=== PATIENT | female | born 1985 | race American Indian/Alaskan Native ===

== ENCOUNTER 2016-11-25 23:36 | Emergency (ER) | payer SELFPAY ==
[2016-11-26] MEDS ORDERED: NORCO 5/325 PO ONE (02:51)
[2016-11-26] MEDS ORDERED: BOOSTRIX IM ONE (02:51)
[2016-11-26] MEDS ORDERED: MARCAINE 0.5% INFILTRATI ONE (02:51)
[2016-11-26] MEDS ORDERED: CLEOCIN IM ONE (02:52)
--- NOTE | 2016-11-26 02:53 | Emergency Department Report ---
- General Chief complaint: Skin/Abscess/Foreign Body Stated complaint: BOIL Time Seen by Provider: 11/26/16 02:15 Source: patient, family Mode of arrival: Ambulatory Limitations: No Limitations - History of Present Illness Initial comments: Patient care reported she has boil to her right pubic area and one on her left buttocks sustaining going on for 4 days. Denies any fever or chills. She says she was treated at another fast facility with Levaquin and Flagyl for UTI and bacterial vaginosis and she said the Levaquin was making her sick so she stopped taking it. She denies any nausea or vomiting at present. Last menstrual period was 11/01 2016. History of bilateral tubal ligation and kidney stones. Pain is 10 out of 10 to abscess that pubic area and abscess under last buttocks. She said that she just moved to the area and she doesn't know anywhere that does wax and so she's been shaving and she's been get an a lot of shaving bumps and it seems like one of them got infected. He says she stopped taking the Levaquin because it was making her nauseous and she is still on Flagyl for bacterial vaginosis. Denies any urinary burning frequency or urgency. Denies any back or abdominal pain. She says she is able to tolerate drinking fluids without vomiting. MD complaint: abscess/boil Onset/Timin -: days(s) Tetanus Up to Date: no Location: buttocks (left buttocks), genitals (right pubic area) Severity: severe Severity scale (0 -10): 10 Quality: constant, other (throbbing pain) Consistency: constant Improves with: rest Worsens with: palpation, movement Context: other (unknown possible from shaving) Associated symptoms: denies other symptoms Treatments Prior to Arrival: bandages, attempted to drain pus at - Related Data Previous Rx's Medication Instructions Recorded Last Taken Type Ibuprofen [Motrin] 600 mg PO Q8H PRN #15 tablet 11/26/16 Unknown Rx Sulfamethoxazole/Trimethoprim 1 each PO BID #20 tablet 11/26/16 Unknown Rx [Bactrim DS TAB] Allergies Allergy/AdvReac Type Severity Reaction Status Date / Time No Known Allergies Allergy Verified 11/25/16 23:45 Abscess Boil HPI - HPI Chief Complaint: Skin/Abscess/Foreign Body Stated Complaint: BOIL Time Seen by Provider: 11/26/16 02:15 Home Medications: Previous Rx's Medication Instructions Recorded Last Taken Type Ibuprofen [Motrin] 600 mg PO Q8H PRN #15 tablet 11/26/16 Unknown Rx Sulfamethoxazole/Trimethoprim 1 each PO BID #20 tablet 11/26/16 Unknown Rx [Bactrim DS TAB] Allergies/Adverse Reactions: Allergies Allergy/AdvReac Type Severity Reaction Status Date / Time No Known Allergies Allergy Verified 11/25/16 23:45 ED Review of Systems ROS: Stated complaint: BOIL Other details as noted in HPI Comment: All other systems reviewed and negative Constitutional: denies: chills, fever Respiratory: no symptoms reported Cardiovascular: denies: chest pain, palpitations, edema, syncope Gastrointestinal: denies: abdominal pain, nausea, vomiting, diarrhea, constipation Genitourinary: denies: urgency, dysuria, frequency, hematuria, discharge, abnormal menses, dyspareunia Musculoskeletal: denies: back pain, arthralgia, myalgia Skin: other (boils) Neurological: denies: headache, abnormal gait, vertigo ED Past Medical Hx - Past Medical History Previous Medical History?: Yes Hx Kidney Stones: Yes - Surgical History Past Surgical History?: Yes Additional Surgical History: TUBAL LIGATION - Family History Family history: hypertension - Social History Smoking Status: Current Some Day Smoker Substance Use Type: Marijuana - Medications Home Medications: Home Medications Medication Instructions Recorded Confirmed Last Taken Type Ibuprofen [Motrin] 600 mg PO Q8H PRN #15 tablet 11/26/16 Unknown Rx Sulfamethoxazole/Trimethoprim 1 each PO BID #20 tablet 11/26/16 Unknown Rx [Bactrim DS TAB] ED Physical Exam - General Limitations: No Limitations General appearance: alert, in no apparent distress - Head Head exam: Present: atraumatic, normocephalic, normal inspection - Eye Eye exam: Present: normal appearance, PERRL, EOMI Pupils: Present: normal accommodation - ENT ENT exam: Present: normal exam, normal orophraynx, mucous membranes moist - Neck Neck exam: Present: normal inspection, full ROM. Absent: tenderness, meningismus, lymphadenopathy - Respiratory Respiratory exam: Present: normal lung sounds bilaterally. Absent: respiratory distress, chest wall tenderness - Cardiovascular Cardiovascular Exam: Present: normal rhythm, tachycardia, normal heart sounds - GI/Abdominal GI/Abdominal exam: Present: soft, normal bowel sounds. Absent: distended, tenderness, guarding, rebound, rigid - External exam: Present: erythema, swelling, other (multiple areas of noninfected shaving bumps with one area of shaving bump that is infected). Absent: lesions, lacerations, ecchymosis, bleeding - Extremities Exam Extremities exam: Present: normal inspection, full ROM, normal capillary refill. Absent: tenderness, pedal edema, joint swelling, calf tenderness - Back Exam Back exam: Present: normal inspection, full ROM. Absent: tenderness, CVA tenderness (R), CVA tenderness (L), muscle spasm, paraspinal tenderness, vertebral tenderness, rash noted - Neurological Exam Neurological exam: Present: alert, oriented X3, normal gait, reflexes normal. Absent: motor sensory deficit - Psychiatric Psychiatric exam: Present: normal affect, normal mood - Skin Skin exam: Present: warm, dry, normal color, erythema, other (left buttocks with quarter size indurated, erythema area tender to palpate without any fluctuance. With small head to center. Right pubic area with indurated minimal fluctuance, erythema, tender to palpate. 2 x 2 centimeter). Absent: rash - Expanded Skin Exam Expanded Type of lesion: Present: abscess ( right pubic area and cellulitic area to left buttocks) Distribution of rash: genitals (right pubic area 2 x 2 cm.), other (left buttocks quarter size erythema indurated area without any fluctuance) Description of rash: Present: size (left buttocks quarter size indurated, nonfluctuant erythema area. Right pubic area of minimal fluctuance, indurated 2 x 2 centimeter. Tender to palpate with mild erythema), tenderness, erythematous, swelling, fluctuant, indurated. Absent: discharge ED Course Vital Signs 11/25/16 11/26/16 23:45 02:50 Temperature 98.9 F Pulse Rate 108 H 94 H Respiratory 22 Rate Blood Pressure 127/90 O2 Sat by Pulse 100 Oximetry Vital Signs 11/25/16 11/26/16 23:45 02:50 Temperature 98.9 F Pulse Rate 108 H 94 H Respiratory 22 Rate Blood Pressure 127/90 O2 Sat by Pulse 100 Oximetry - Reevaluation(s) Reevaluation #1: 11/26/16 05:10 Patient given Dallas 5/325 2 tablets, booster 0.5 mils IM and Cleocin 6 edges milligrams IM in emergency room without any adverse reaction. Seizure note for details on incision and drainage of abscess - I & D Right Pubic Area Type of Procedure: Complex Site: right pubic area Blade Size: 11 I & D Procedure: betadine prep, sterile drapes applied, sterile dressing applied , gauze wick placed Progress: 5 mL of 0.5% Marcaine used prior to incision and drainage. Patient tolerated procedure well. Small amount of pus mixed with blood came from side. Instructed to apply warm compresses 3-4 times a day and return to the emergency room in 4 days for removal of packing. Simple cellulitic area to left buttocks quarter size unable to I&D because area is indurated without any fluctuant. Patient instructed to apply warm compresses to site to facilitate soft pain and drainage. ED Medical Decision Making - Medical Decision Making ED course: Patient with cellulitis and abscess to right pubic area and cellulitic area to left buttocks area. Procedure note for incision and drainage of abscess to right pubic area. Cellulitic area to left buttocks unable to be drained due to induration and no fluctuance. Patient given an Cleocin 600 mg IM, booster 0.5 mL IM and Dallas 5/325 2 tablets emergency room prior to procedure. Patient instructed to follow up with her primary care physician in 3-5 days and if she does not have one to return to the emergency room through of packing removed. Patient discharged home with prescription for Bactrim and to continue to take her Flagyl for bacterial vaginosis. She was also discharged home with prescription for Motrin for pain. Critical care attestation.: If time is entered above; I have spent that time in minutes in the direct care of this critically ill patient, excluding procedure time. ED Disposition Clinical Impression: Encounter for incision and drainage procedure, Abscess of pubic region, Cellulitis of left buttock Disposition: DC-01 TO HOME OR SELFCARE Is pt being admited?: No Does the pt Need Aspirin: No Condition: Stable Instructions: Cellulitis (ED), Abscess Incision and Drainage (ED) Additional Instructions: Please return to emergency room in 4 days to have packing removed from pubic region. Please take sitz baths and apply warm compresses to right pubic area 3-4 times a day and sitz baths to left buttocks to help to soften cellulitic area. take Motrin as prescribed Take Bactrim DS as instructed If area of cellulitis worsens, increase in pain and increase in swelling please return to the emergency room LALIT Please keep pack in and place to area that was incision and drained until you are seen in 4 days. Prescriptions: Ibuprofen [Motrin] 600 mg PO Q8H PRN #15 tablet PRN Reason: Pain Sulfamethoxazole/Trimethoprim [Bactrim DS TAB] 1 each PO BID #20 tablet Referrals: PRIMARY CARE,MD [Primary Care Provider] - 3-5 Days [facility] [Outside] - 3-5 Days return to, ED in 4 days [Other] - 11/30/16 (For removal of packing in.) Forms: Work/School Release Form(ED)
[2016-11-26 06:54] VITALS: BP 126/70
== END 2016-11-26 05:40 | disposition home or self-care (01) ==
LOC: ED 23:36
DX: N73.9 Female pelvic inflammatory disease, unspecified (principal); N73.2 Unspecified parametritis and pelvic cellulitis; F17.200 Nicotine dependence, unspecified, uncomplicated; F12.10 Cannabis abuse, uncomplicated
CPT/HCPCS: 90471; 90715; 96372; 99283

== ENCOUNTER 2016-11-30 20:13 | Emergency (ER) | payer SELFPAY ==
[2016-12-01] MEDS ORDERED: TRIPLE ANTIBIOTIC TP ONE (02:46)
[2016-12-01 03:14] VITALS: BP 115/72
--- NOTE | 2016-12-01 03:48 | Emergency Department Report ---
ED General Adult HPI - General Chief complaint: Skin/Abscess/Foreign Body Stated complaint: RETURN VISIT Source: patient Mode of arrival: Ambulatory Limitations: No Limitations - History of Present Illness Initial comments: 31 year old female presents to ED for packing removal of right inguinal abscess. patient states she had abscess drained 4 days ago and was told to return for removal of packing. patient is afebrile, neurologically intact, stable and in no acute distress. -: days(s) (4) Location: pelvis Severity scale (0 -10): 0 Consistency: now resolved Improves with: none Worsens with: none Associated Symptoms: denies other symptoms. denies: fever/chills - Related Data Previous Rx's Medication Instructions Recorded Last Taken Type Ibuprofen [Motrin] 600 mg PO Q8H PRN #15 tablet 11/26/16 Unknown Rx Sulfamethoxazole/Trimethoprim 1 each PO BID #20 tablet 11/26/16 Unknown Rx [Bactrim DS TAB] Allergies Allergy/AdvReac Type Severity Reaction Status Date / Time No Known Allergies Allergy Verified 11/25/16 23:45 ED Review of Systems ROS: Stated complaint: RETURN VISIT Other details as noted in HPI Constitutional: denies: chills, fever Eyes: denies: eye pain, eye discharge, vision change ENT: denies: ear pain, throat pain Respiratory: denies: cough, shortness of breath, wheezing Cardiovascular: denies: chest pain, palpitations Endocrine: no symptoms reported Gastrointestinal: denies: abdominal pain, nausea, diarrhea Genitourinary: denies: urgency, dysuria, discharge Musculoskeletal: denies: back pain, joint swelling, arthralgia Skin: other (draining abscess present on right inguinal area of pelvis). denies : rash, lesions Neurological: denies: headache, weakness, paresthesias Psychiatric: denies: anxiety, depression Hematological/Lymphatic: denies: easy bleeding, easy bruising ED Past Medical Hx - Past Medical History Hx Kidney Stones: Yes - Surgical History Additional Surgical History: TUBAL LIGATION - Social History Smoking Status: Never Smoker Substance Use Type: None - Medications Home Medications: Home Medications Medication Instructions Recorded Confirmed Last Taken Type Ibuprofen [Motrin] 600 mg PO Q8H PRN #15 tablet 11/26/16 Unknown Rx Sulfamethoxazole/Trimethoprim 1 each PO BID #20 tablet 11/26/16 Unknown Rx [Bactrim DS TAB] ED Physical Exam - General Limitations: No Limitations General appearance: alert, in no apparent distress - Head Head exam: Present: atraumatic, normocephalic - Eye Eye exam: Present: normal appearance - ENT ENT exam: Present: mucous membranes moist - Neck Neck exam: Present: normal inspection - Respiratory Respiratory exam: Present: normal lung sounds bilaterally. Absent: respiratory distress - Cardiovascular Cardiovascular Exam: Present: regular rate, normal rhythm. Absent: systolic murmur, diastolic murmur, rubs, gallop - GI/Abdominal GI/Abdominal exam: Present: soft, normal bowel sounds, other (draining right inguinal abscess present in pelvic area. area is non infected appearing with no streaking erythema present. area is actively draining yellow discharge.). Absent: distended, tenderness - Extremities Exam Extremities exam: Present: normal inspection - Back Exam Back exam: Present: normal inspection - Neurological Exam Neurological exam: Present: alert, oriented X3 - Psychiatric Psychiatric exam: Present: normal affect, normal mood - Skin Skin exam: Present: warm, dry, intact, normal color. Absent: rash ED Course Vital Signs 11/30/16 12/01/16 21:02 03:13 Temperature 80 F L 97.9 F Pulse Rate 80 62 Respiratory 18 20 Rate Blood Pressure 120/84 Blood Pressure 115/72 [Right] O2 Sat by Pulse 100 100 Oximetry ED Medical Decision Making - Medical Decision Making 31 year old female presents to ED for packing removal of previously drained abscess. patient is currently on Bactrim for abscess. packing has been removed and triple antibiotic ointment and new gauze applied to area of previous I&D. patient is stable, neurologically intact and in no acute distress. Critical care attestation.: If time is entered above; I have spent that time in minutes in the direct care of this critically ill patient, excluding procedure time. ED Disposition Clinical Impression: Abscess of pubic region Disposition: DC-01 TO HOME OR SELFCARE Is pt being admited?: No Does the pt Need Aspirin: No Condition: Stable Additional Instructions: please follow up with a PCP that I referred you to within 2-3days. Referrals: PAULINO GONCALVES MD [Staff Physician] - 2-3 Days JEFERSON POSADA MD [Staff Physician] - 2-3 Days PRIMARY MD YONIS [Primary Care Provider] - 2-3 Days
== END 2016-12-01 03:34 | disposition home or self-care (01) ==
LOC: ED 20:13
DX: Z48.01 Encounter for change or removal of surgical wound dressing (principal); Z98.51 Tubal ligation status
CPT/HCPCS: A6250

== ENCOUNTER 2017-08-22 17:08 | Emergency (ER) | payer SELFPAY ==
[2017-08-22 17:28] VITALS: BP 178/100
[2017-08-22 18:03] LABS: Alanine Aminotransferase 11 units/L (7-56); Albumin 4.4 g/dL (3.9-5); BUN/Creatinine Ratio 8; Blood Urea Nitrogen 8 mg/dL (7-17); Calcium 8.8 mg/dL (8.4-10.2); Hemolysis Index 7; Lipase 36 units/L (13-60)
[2017-08-22 18:08] LABS: Hemoglobin 14.9 gm/dl (10.1-14.3); Mean Corpuscular HGB Conc 33 % (30-34); Mean Corpuscular Hemoglobin 29 pg (28-32); Mean Corpuscular Volume 87 fl (79-97); Platelet Count 188 K/mm3 (140-440); Red Blood Count 5.18 M/mm3 (3.65-5.03); Red Cell Distribution Width 15.2 % (13.2-15.2)
[2017-08-22 18:22] LABS: Bacteria,Urine 1+ /HPF (Negative); Bilirubin,Urine NEG (Negative); Blood,Urine NEG (Negative); Color,Urine Yellow (Yellow); Protein,Urine <15 mg/dL mg/dL (Negative); Urobilinogen,Urine < 2.0 mg/dL (<2.0)
[2017-08-22 18:26] LABS: HCG Qualitative,Urine Negative (Negative)
[2017-08-22 18:40] LABS: Basophils % (Manual) 0 % (0.0-1.8); Eosinophils % (Manual) 0 % (0.0-4.3); Total Cells Counted 100
[2017-08-22 18:41] LABS: Large Platelets Few; Poikilocytosis Few
[2017-08-22] MEDS ORDERED: MOTRIN PO ONE ×2 (20:22→20:27)
[2017-08-22] MEDS ORDERED: ZOFRAN ODT PO ONE (22:52)
[2017-08-22] MEDS ORDERED: TORADOL IM ONE (22:56)
[2017-08-22] MEDS ORDERED: LEVAQUIN PO ONE (22:57)
--- NOTE | 2017-08-22 23:28 | Emergency Department Report ---
ED Abdominal Pain HPI - General Chief Complaint: Abdominal Pain Stated Complaint: ABDOMINAL PAIN Time Seen by Provider: 08/22/17 22:32 Source: patient Mode of arrival: Ambulatory Limitations: No Limitations - History of Present Illness Initial Comments: Patient is complaining of left flank pain radiating to the suprapubic area of severe intensity with no aggravating or relieving factors. She is also complaining of nausea vomiting and diarrhea. MD Complaint: abdominal pain, flank pain -: Gradual Location: suprapubic, L flank Radiation: none Severity: severe Severity scale (0 -10): 9 Quality: aching Consistency: constant Improves With: nothing Worsens With: nothing - Related Data Previous Rx's Medication Instructions Recorded Last Taken Type Ibuprofen [Motrin] 600 mg PO Q8H PRN #15 tablet 11/26/16 Unknown Rx Sulfamethoxazole/Trimethoprim 1 each PO BID #20 tablet 11/26/16 Unknown Rx [Bactrim DS TAB] Allergies Allergy/AdvReac Type Severity Reaction Status Date / Time No Known Allergies Allergy Verified 11/25/16 23:45 ED Review of Systems ROS: Stated complaint: ABDOMINAL PAIN Other details as noted in HPI Comment: All other systems reviewed and negative ED Past Medical Hx - Past Medical History Hx Kidney Stones: Yes - Surgical History Additional Surgical History: TUBAL LIGATION - Social History Smoking Status: Never Smoker Substance Use Type: Alcohol - Medications Home Medications: Home Medications Medication Instructions Recorded Confirmed Last Taken Type Ibuprofen [Motrin] 600 mg PO Q8H PRN #15 tablet 11/26/16 Unknown Rx Sulfamethoxazole/Trimethoprim 1 each PO BID #20 tablet 11/26/16 Unknown Rx [Bactrim DS TAB] ED Physical Exam - General Limitations: No Limitations General appearance: alert, in no apparent distress - Head Head exam: Present: atraumatic, normocephalic - Eye Eye exam: Present: normal appearance - ENT ENT exam: Present: mucous membranes moist - Neck Neck exam: Present: normal inspection - Respiratory Respiratory exam: Present: normal lung sounds bilaterally. Absent: respiratory distress - Cardiovascular Cardiovascular Exam: Present: regular rate, normal rhythm. Absent: systolic murmur, diastolic murmur, rubs, gallop - GI/Abdominal GI/Abdominal exam: Present: soft, tenderness (suprapubic tenderness and left upper and lower quadrant tenderness. Positive CVA tenderness), normal bowel sounds - Rectal Rectal exam: Present: deferred - Extremities Exam Extremities exam: Present: normal inspection - Back Exam Back exam: Present: normal inspection - Neurological Exam Neurological exam: Present: alert, oriented X3 - Psychiatric Psychiatric exam: Present: normal affect, normal mood - Skin Skin exam: Present: warm, dry, intact, normal color. Absent: rash ED Course Vital Signs 08/22/17 08/22/17 08/22/17 17:25 20:27 21:00 Temperature 97.8 F Pulse Rate 98 H Respiratory 20 18 18 Rate Blood Pressure 178/100 O2 Sat by Pulse 100 Oximetry 08/22/17 23:10 Temperature Pulse Rate Respiratory 20 Rate Blood Pressure O2 Sat by Pulse Oximetry ED Medical Decision Making - Lab Data Result diagrams: 08/22/17 17:35 08/22/17 17:35 Critical care attestation.: If time is entered above; I have spent that time in minutes in the direct care of this critically ill patient, excluding procedure time. ED Disposition Clinical Impression: UTI (urinary tract infection), Kidney stone Disposition: ELOPED Condition: Stable Instructions: Abdominal Pain (ED) Referrals: TANIA RIBERA MD [Primary Care Provider] - 3-5 Days
--- NOTE | 2017-08-23 00:20 | Cat Scan Report ---
FINAL REPORT EXAM: CT ABDOMEN PELVIS WO CON HISTORY: LEFT FLANK PAIN HX kidney stone TECHNIQUE: Routine axial imaging was obtained of the abdomen and pelvis without oral or IV contrast. Sagittal and coronal reconstructions were reviewed. FINDINGS: The lung bases are clear. Pleural fluid is not seen. The liver, gallbladder, pancreas, spleen, and adrenal glands appear normal. The kidneys reveal numerous nonobstructing stones bilaterally measuring up to 7.2 mm in diameter in the right kidney. There is no evidence of hydronephrosis. There are cystic changes in the lower pole of left kidney measuring 2.9 cm in diameter. The perinephric fat appears normal bilaterally. The bowel loops are normal in caliber and course. There is no evidence of free fluid or adenopathy. The appendix is not seen. In the pelvis the uterus and bladder appear normal. The adnexa appear normal. The skeletal structures do not show any acute changes. IMPRESSION: Multiple bilateral nonobstructing stones in both kidneys. No evidence of hydronephrosis. No acute process in the abdomen and pelvis. Benign cystic changes in the lower pole of the left kidney.
== END 2017-08-23 00:38 | disposition left against medical advice (07) ==
LOC: ED 17:08
DX: N39.0 Urinary tract infection, site not specified (principal); N20.0 Calculus of kidney; Z98.51 Tubal ligation status
CPT/HCPCS: 36415; 74176; 80053; 81001; 81025; 83690; 85007; 85025; 87086; 96372; 99284; J1885; Q0162